=== PATIENT | male | born 1960 | race Caucasian/White ===

== ENCOUNTER 2018-07-27 05:49 | Day surgery (SDC) | payer BC ==
[~2018-07-27] VITALS: Ht 182.9 cm; Wt 92.2 kg
[2018-07-27] MEDS ORDERED: ALBUTEROL (06:50)
[2018-07-27] MEDS ORDERED: magnesium (06:50)
[2018-07-27] MEDS ORDERED: pradaxa (06:50)
[2018-07-27] MEDS ORDERED: coreg (06:50)
[2018-07-27] MEDS ORDERED: ferrous sulfate (06:50)
[2018-07-27] MEDS ORDERED: allopurinol (06:50)
[2018-07-27] MEDS ORDERED: digoxin (06:50)
[2018-07-27] MEDS ORDERED: benzonatate (06:50)
[2018-07-27] MEDS ORDERED: lasix (06:50)
[2018-07-27] MEDS ORDERED: escitalopram (06:50)
[2018-07-27] MEDS ORDERED: lisinopril (06:50)
[2018-07-27] MEDS ORDERED: atorvastatin (06:50)
[2018-07-27] MEDS ORDERED: amiodarone (06:50)
[2018-07-27] MEDS ORDERED: [UNRECOGNIZED DRUG - OTHER] (06:50)
[2018-07-27] MEDS ORDERED: [UNRECOGNIZED DRUG - REMARK] (06:50)
[2018-07-27] MEDS ORDERED: singulair (06:50)
[2018-07-27] MEDS ORDERED: albuterol prn (06:50)
[2018-07-27] MEDS ORDERED: PROPOFOL 200 MG INJ ONE (07:00)
[2018-07-27] MEDS ORDERED: PROPOFOL 40 ML ONE (07:10)
[2018-07-27] MEDS ORDERED: LIDOCAINE 100 MG SYRINGE ONE (07:10)
--- NOTE | 2018-07-27 07:10 | PREAC ---
Date/Time of Note Date/Time of Note DATE: 07/27/18 TIME: 07:08 Anesthesia Eval and Record Evaluation Time Pre-Procedure Interview DATE: 07/27/18 TIME: 07:08 Age 57 Sex male NPO: 8 hrs Preoperative diagnosis anemia, rectal bleeding Planned procedure EGD, COLON WITH BIOPSIES Past Medical History Past Medical History: Includes Cardio: Arrythmia (A-FIB), PPM/AICD (AICD), CHF Pulm: COPD Surgery & Anesthesia Issues No known issue Meds Anticoagulation: No Beta Hal within 24 hr: No Reason Beta Hal not given: Pt. not on B-Hal Reported Medications [albuterol neb prn] No Conflict Check 07/27/18 [albuterol prn] No Conflict Check 07/27/18 [lorazepam prn] No Conflict Check 07/27/18 [singulair] No Conflict Check 07/27/18 [escitalopram] No Conflict Check 07/27/18 [coreg] No Conflict Check 07/27/18 [ferrous sulfate] No Conflict Check 07/27/18 [lasix] No Conflict Check 07/27/18 [allopurinol] No Conflict Check 07/27/18 [lisinopril] No Conflict Check 07/27/18 [digoxin] No Conflict Check 07/27/18 [unk medication] No Conflict Check 07/27/18 [magnesium] No Conflict Check 07/27/18 [benzonatate] No Conflict Check 07/27/18 [pradaxa] No Conflict Check 07/27/18 [atorvastatin] No Conflict Check 07/27/18 [amiodarone] No Conflict Check 07/27/18 Meds reviewed: Yes Allergies Allergies Reviewed: Yes Labs/Studies Labs Reviewed: Reviewed by anesthesiologist test: N/A Pre-procedure Exam Airway: Adequate mouth opening, Adequate thyromental dist Mallampati: Mallampati II Teeth: Normal Lung: Normal Heart: Normal ASA Physical Status ASA physical status: 3 Emergency: None Planned Anesthetic General/MAC: MAC Planned Pain Management Parenteral pain med Pre-operative Attestations Prior to commencing anesthesia and surgery, the patient was re-evaluated, there was verification of: *The patient's identity *The results of appropriate recent lab work and preoperative vital signs *The above evaluation not changing prior to induction *Anesthetic plan, risk benefits, alternative and complications discussed with patient/family; questions answered; patient/family understands, accepts and wishes to proceed. Oli Berman M.D. Jul 27, 2018 07:09
[2018-07-27] MEDS ORDERED: FENTAnyl 50 MCG/ML VIAL ONE (07:11)
[2018-07-27 07:14] VITALS: BP 113/67; PULSE 67; RESP 17
[2018-07-27 07:21] VITALS: Ht 182.9 cm; Wt 92.2 kg
--- NOTE | 2018-07-27 07:47 | PAC ---
Date/Time of Note Date/Time of Note DATE: 07/27/18 TIME: 07:46 Post-Anesthesia Notes Post-Anesthesia Note Last documented vital signs HR;76 RR;14 BP;110/68 T;98 Activity: WNL Respiratory function: WNL Cardiovascular function: WNL Mental status: Baseline Pain reasonably controlled: Yes Hydration appropriate: Yes Nausea/Vomiting absent: Yes Oli Berman M.D. Jul 27, 2018 07:47
[2018-07-27 08:25] VITALS: BP 112/69; PULSE 85; RESP 15
== END 2018-07-27 11:37 | disposition home or self-care (01) ==
LOC: GIL 05:49
PROVIDERS: ATTEND Internal Medicine Gastroenterology
DX: D12.3 Benign neoplasm of transverse colon (principal); K31.9 Disease of stomach and duodenum, unspecified; K64.8 Other hemorrhoids; K20.8 Other esophagitis; J44.9 Chronic obstructive pulmonary disease, unspecified; I48.91 Unspecified atrial fibrillation; I50.9 Heart failure, unspecified; Z95.810 Presence of automatic (implantable) cardiac defibrillator
CPT/HCPCS: 43239; 45380; 88305; 88312; J2001; J3010